=== PATIENT | female | born 1985 | race Caucasian/White ===

== ENCOUNTER 2023-11-02 14:34 | Emergency (ER) | payer SELFPAY ==
[2023-11-02 14:46] VITALS: BP 117/75; PULSE 100; RESP 19; TEMP 98.6; BMI 30.2
== END 2023-11-02 16:51 | disposition home or self-care (01) ==
LOC: JER 14:34
PROC: 0U9LX0Z Drainage of Vestibular Gland with Drainage Device, External Approach (ICD-10-PCS; principal; 2023-11-02)
DX: N75.0 Cyst of Bartholin's gland (principal)
CPT/HCPCS: 99282-25